=== PATIENT | male | born 1990 | race Hispanic/Latino ===

== ENCOUNTER 2021-01-18 04:37 | Inpatient (IN) | payer SELFPAY ==
[2021-01-18] MEDS ORDERED: NORepinephrine/NS 4 MG-250 ML 4 MG/250 ML BAG IV ONE (04:58)
[2021-01-18] MEDS: NORepinephrine/NS 4 MG-250 ML 4 MG/250 ML BAG IV SCH ×3 (05:06→09:43)
[2021-01-18] MEDS ORDERED: LIP THERAPY VASELINE TP PRN (05:20)
[2021-01-18] MEDS ORDERED: MINERAL OIL/PETROLATUM, WHITE OPHTH OINT 3.5 GM OU PRN (05:20)
[2021-01-18] MEDS ORDERED: fentaNYL 100 MCG/2 ML INJ IV PRN (05:20)
[2021-01-18] MEDS ORDERED: LACTATED RINGERS 1,000 ML IV ONE ×3 (05:23→06:07)
--- NOTE | 2021-01-18 05:25 | Emergency Department Report ---
<LEROY ALMONTE - Last Filed: 01/18/21 06:13> ED General Adult HPI - General Chief complaint: Overdose Stated complaint: OVERDOSE PUI?: No Time Seen by Provider: 01/18/21 05:19 Source: EMS (Verbal report received from emergency medical services. EMS documentation not available at time of chart dictation ), RN notes reviewed Mode of arrival: Stretcher Limitations: Altered Mental Status, Physical Limitation - History of Present Illness Initial comments: The patient was evaluated in the emergency department for symptoms described in the history of present illness. He/she was evaluated in the context of the global COVID-19 pandemic, which necessitated consideration that the patient might be at risk for infection with the virus that causes COVID-19. Institutional protocols and algorithms that pertain to the evaluation of patients at risk for COVID-19 are in a state of rapid change based on i nformation released by regulatory bodies including the CDC and federal and state organizations. These policies and algorithms were followed during the patient's care in the emergency department. Please note that these policies, procedures and recommendations changed on a rapid basis. This is a 30-year-old gentleman. He is not known to myself previously. He is brought to the hospital by emergency medical services as out of hospital cardiac arrest, suspected secondary to overdose. EMS reports that the patient was found down after suspected overdose, apparently, his last known well time was 3:00 in the morning, EMS reports that it is suspected that the patient overdosed on methamphetamine, as well as opioids. His family stated that his last known well time was 3 in the morning. His aunt stated that he appeared to be slumped over, without signs of trauma, but and not breathing well. She also stated that the patient had been "talking crazy", over the past few days. She states that she started CPR. EMS was contacted, and they reported that police also started CPR. EMS reported that patient's initial rhythm is pulseless electrical activity, and the patient was intubated in the field with a 7.0 endotracheal tube. Transport time approximately 20 minutes. EMS reports no pulses during that transport time. They report that the patient subsequently developed a shockable rhythm, was shocked, given amiodarone. Upon arrival to this emergency room, patient's pupils are fixed, dilated, do not react to light, he has a GCS of 3T, and he is receiving CPR. He is vomitus around the oropharynx. He is found to be in pulseless electrical activity. Endotracheal tube position was confirmed with video laryngoscopy. Standard ACLS interventions are continued. Subsequently, patient regained pulses, approximately 10 to 15 minutes into his ER resuscitation. His endotracheal tube was then changed to a 7.5 endotracheal tube, using video and direct laryngoscopy, secondary to hypoxia. Patient hypotensive with IV access only right lower extremity IO, therefore, emergently, and administratively consented by myself for sterile central line placement, using ultrasound guidance, in the right internal jugular distribution. Patient started on norepinephrine, and medicated appropriately. Currently, patient hypothermic, hypotensive, in a coma, with a GCS of 3T. His family is subsequently informed. -: This morning (3:00 in the morning) Radiation: other Quality: other Consistency: other Improves with: other Worsens with: other Associated Symptoms: other Treatments Prior to Arrival: other - Related Data Allergies Allergy/AdvReac Type Severity Reaction Status Date / Time Unable to Assess Allergy Unverified 01/18/21 05:47 ED Review of Systems Comment: Unobtainable due to pts medical conditions ED Physical Exam - General Limitations: Altered Mental Status, Physical Limitation General appearance: obtunded - Head Head exam: Present: atraumatic, normocephalic - Eye Eye exam: Present: other (Pupils dilated, do not react to) - ENT ENT exam: Present: normal exam, normal orophraynx, mucous membranes moist, other (Copious secretions noted in the oropharynx) - Neck Neck exam: Present: normal inspection. Absent: tenderness, meningismus - Respiratory Respiratory exam: Present: rhonchi. Absent: respiratory distress - Cardiovascular Cardiovascular Exam: Present: regular rate, normal rhythm. Absent: tachycardia, irregular rhythm, systolic murmur, diastolic murmur, rubs, gallop - GI/Abdominal GI/Abdominal exam: Present: soft. Absent: distended, tenderness, guarding, rebound, rigid, pulsatile mass - Rectal Rectal exam: Present: deferred, normal inspection - External exam: Present: normal external exam - Extremities Exam Extremities exam: Present: normal inspection. Absent: tenderness - Back Exam Back exam: Present: normal inspection. Absent: CVA tenderness (R), CVA tenderness (L), muscle spasm, paraspinal tenderness, vertebral tenderness - Neurological Exam Neurological exam: Present: altered, other (GCS of 3T) - Psychiatric Psychiatric exam: Present: other (Patient is nonverbal) - Skin Skin exam: Present: warm, dry, intact, normal color. Absent: rash ED Course - Reevaluation(s) Reevaluation #1: 01/18/21 06:06 Differential diagnosis, including but not limited to: Anoxic brain injury, overdose, pneumonitis, pulmonary embolism Assessment and plan: 30-year-old gentleman, presenting as out of hospital cardiac arrest, prolonged downtime, prolonged requirements for CPR, now with return of spontaneous circulation, with a GCS of 3T. This hospital does not have a postarrest hypothermia protocol. Patient required initiation of vasopressors. Patient had central line placed by myself. He is currently being mechanically ventilated. Coagulopathy, leukocytosis likely secondary to physiology of cardiac arrest. He will be covered empirically with fluids, antibiotics, cultures. CT scan of the brain, cervical spine, chest is pending. Given history of suspected overdose, patient is placed on 1013. Serum toxicology studies ordered and pending. Extensive discussion had with patient's family regarding overall poor neurologic prognosis. Care will be transferred to the oncoming ER physician, Dr Cruz, to follow-up on CT scan brain, cervical spine, chest, serum laboratory studies, and arrange admission to our intensive care unit. Please note that sterile central line was placed using sterile gloves, as the department did not have sterile probe readily available. Therefore, sterile gloves were used to place the Central line. maximum barrier precautions were used, however, I recommend the central line be taken out and replaced within 24 hours, using maximum sterile barrier precautions, and a sterile probe cover. - Central Line Placement Right IJ Consent Obtained: emergent situation Time Out Performed: No Patient Placed on Monitor/Pulse Ox: No MD Prep: mask, gown, gloves Central Line Prep: Chlorhexidine scrub Local Anesthesia Used: Lidocaine 1% Amount of Anesthesia Used (mls): 10 Ultrasound Used for Placement: Yes Central Line Lumen Inserted: triple Reason for Insertion: Emergency Venous Access Bloods Obtained for Lab: Yes Central Line Position: good blood return, all ports aspirated, flus, sutured in place with 2-0 Dressing Applied: Tegaderm Post Procedure X-Ray: tip of catheter in good p Patient Tolerated Procedure: well - Intubation Time Out Performed: No Laryngoscope: Lisette Size: 3 Assist Device Used: fiberoptic device ET Tube Size: 7.5 Tube Secured Depth (cm): 23 Tube Secured Location: teeth Tube Placement Confirmation: visualized tube passing t, equal breath sounds bilat, no breath sounds over epi, confirmation by capnometr Patient Tolerated Procedure: well Intubation Complications: difficult intubation, hypoxia ED Medical Decision Making - Lab Data Result diagrams: 01/18/21 05:31 01/18/21 05:31 Vital Signs 01/18/21 01/18/21 04:50 05:00 Temperature 92.6 F L Pulse Rate 53 L 32 L Respiratory 8 L Rate Blood Pressure 58/40 58/40 O2 Sat by Pulse 89 85 Oximetry Lab Results 01/18/21 01/18/21 01/18/21 Range/Units 05:31 05:31 05:31 WBC 19.2 H (4.5-11.0) K/mm3 RBC 4.57 (3.65-5.03) M/mm3 Hgb 13.8 (11.8-15.2) gm/dl Hct 43.3 (35.5-45.6) % MCV 95 H (84-94) fl MCH 30 (28-32) pg MCHC 32 (32-34) % RDW 14.7 (13.2-15.2) % Plt Count 244 (140-440) K/mm3 Lymph # (Auto) [employer] PT 23.8 H (12.2-14.9) Sec. INR 2.13 H (0.87-1.13) APTT 104.7 H* (24.2-36.6) Sec. Estimated GFR 24 ml/min BUN/Creatinine Ratio 8 % Albumin/Globulin Ratio 2.0 % Plasma/Serum Alcohol (0-0.07) % 01/18/21 Range/Units 05:31 WBC (4.5-11.0) K/mm3 RBC (3.65-5.03) M/mm3 Hgb (11.8-15.2) gm/dl Hct (35.5-45.6) % MCV (84-94) fl MCH (28-32) pg MCHC (32-34) % RDW (13.2-15.2) % Plt Count (140-440) K/mm3 Lymph # (Auto) PT (12.2-14.9) Sec. INR (0.87-1.13) APTT (24.2-36.6) Sec. Estimated GFR ml/min BUN/Creatinine Ratio % Albumin/Globulin Ratio % Plasma/Serum Alcohol 0.01 (0-0.07) % - EKG Data -: EKG Interpreted by Me EKG shows normal: sinus rhythm Rate: normal - EKG Data 01/18/21 06:08 sinus kerry, 55 bpm, first degre av block, QTC prolonged, 494 ms. Time of interpretation, 5:58 AM. This is an abnormal EKG. This is not a STEMI - Radiology Data Radiology results: pending, report reviewed, image reviewed CHEST 1 VIEW 01/18/2021 4:57 AM INDICATION / CLINICAL INFORMATION: ETT placement. COMPARISON: None available. FINDINGS: SUPPORT DEVICES: Endotracheal tube in satisfactory position. Right IJ central venous catheter tip over the superior vena cava. No pneumothorax. HEART / MEDIASTINUM: No significant abnormality. LUNGS / PLEURA: Mild asymmetric opacity on the right. Left lung clear. No pneumothorax or pleural fluid. ADDITIONAL FINDINGS: No significant additional findings. IMPRESSION: 1. Asymmetric opacity right chest. Aspiration/pneumonia is favored over asymmetric edema. 2. Lines and tubes in satisfactory position. Signer Name: Estevan Saleh MD Signed: 01/18/2021 5:07 AM Workstation Name: [id number] Critical Care Time: Yes Critical care time in (mins) excluding proc time.: 35 ED Disposition Clinical Impression: Cardiac arrest, Hypothermia, Aspiration pneumonia, Hyperammonemia, Upper GI bleed Disposition: - OP ADMIT IP TO THIS HOSP Is pt being admited?: Yes Does the pt Need Aspirin: No Condition: Critical <NOMI CRUZ - Last Filed: 01/18/21 08:42> ED Review of Systems ROS: Stated complaint: OVERDOSE Other details as noted in HPI ED Course Vital Signs 01/18/21 01/18/21 01/18/21 04:50 05:00 05:45 Temperature 92.6 F L 92.6 F L Pulse Rate 53 L 32 L Respiratory 8 L Rate Blood Pressure 58/40 58/40 O2 Sat by Pulse 89 85 Oximetry - Reevaluation(s) Reevaluation #2: 01/18/21 07:00 patient care transition to Dr. Nomi Cruz at [address] of [address] head, CTA chest. During initial evaluation, patient unresponsive, intubated, normotensive on Levophed drip via triple-lumen to right IJ. Currently receiving second bag of lactated Ringer's. Given abnormal labs, 1 L IV NS ordered. Reevaluation #3: 01/18/21 07:[address] head, abnormal CT chest, discussed with mother probable medical futility of aggressive measures given ischemia demonstrated on brain CT. Initially ordered lactulose for hyperammonemia, however this is discontinued secondary to apparent upper GI bleed visualized via OG tube. Hospitalist contacted for admission to critical care unit, has ongoing discussion with mother prior to any further patient intervention. Patient admitted to CCU. [facility] [address] [place] [address] C at Scan Report Signed Patient: DAYANA SPAIN MR#: [id number] : 1990 Acct:[id number] Age/Sex: 30 / M ADM Date: 01/18/21 Loc: ED Attending Dr: Ordering Physician: LEROY ALMONTE MD Date of Service: 01/18/21 Procedure(s): CT angio chest Accession Number(s): [id number] cc: LEROY ALMONTE MD CTA CHEST HISTORY: Chest Pain. COMPARISON: None TECHNIQUE: Routine chest CT angiogram performed utilizing intravenous contrast. MIP/3D reformats were post- processed. CONTRAST: 100 ml of Isovue-370 FINDINGS: Heart and Pericardium: No significant abnormality. Pulmonary Arteries: Diagnostic pulmonary artery opacification. No significant respiratory motion. No pulmonary emboli seen. Thoracic Aorta: Normal in caliber. No dissection flap Lymphatics: No lymphadenopathy by size criteria. Lungs: Groundglass opacity and patchy infiltrates greater dependently. No pleural fluid. Trachea and Bronchi: No significant abnormality. Osseous Structures: Irregularity involving the anterior cortex of the sternum. Additional Findings: None IMPRESSION: 1. Overall diagnostic examination. Negative for pulmonary embolism. 2. Negative for thoracic aortic dissection or thoracic aortic aneurysm. 3. Bilateral pneumonia is likely aspiration in origin. There is likely superimposed mild edema 4. Suspect nondisplaced fracture anterior sternum. CRITICAL RESULT: Time of Discovery: 6:17 AM Time of Communication: 6:22 AM Licensed Practitioner Receiving Report: ER physician Read Back Performed: Yes. Signer Name: Estevan Saleh MD Signed: 01/18/2021 7:27 AM Workstation Name: [id number] Transcribed By: ES Dictated By: Estevan Saleh MD Electronically Authenticated By: Estevan Saleh MD Signed Date/Time: 01/18/21726 DD/ 6 TD/TT: Cat Scan Report Signed Patient: DAYANA SPAIN MR#: [id number] : 1990 Acct:[id number] Age/Sex: 30 / M ADM Date: 01/18/21 Loc: ED Attending Dr: Ordering Physician: LEROY ALMONTE MD Date of Service: 01/18/21 Procedure(s): CT head/brain wo con Accession Number(s): [id number] cc: LEROY ALMONTE MD CT head without contrast INDICATION : Cardiac Arrest, Altered Mental Status, Overdose. TECHNIQUE: Axial imaging performed from the skull apex through the skull base without the use of contrast. All CT scans at this location are performed using CT dose reduction for ALARA by means of automated e xposure control. COMPARISON: None FINDINGS: Parenchyma: Mild loss of the lee- white differentiation. No hemorrhage. Ventricles: Ventricles are normal in size and appear symmetric. Soft tissues: Soft tissues including the orbits appear normal. Bones: No acute osseous abnormality. Sinuses: Bilateral maxillary sinus air-fluid levels. Mild fluid left ethmoid air cells. IMPRESSION: 1. Mild loss of the lee-white differentiation. It is uncertain if this is normal for this patient or if the findings represent early ischemia. 2. Fluid at the maxillary sinuses and left ethmoid air cells. CRITICAL RESULT: Time of Discovery: 6:20 AM Time of Communication: 6:22 AM Licensed Practitioner Receiving Report: ER physician Read Back Performed: Yes. ED Medical Decision Making - Lab Data Result diagrams: 01/18/21 05:31 01/18/21 05:31 Critical care attestation.: If time is entered above; I have spent that time in minutes in the direct care of this critically ill patient, excluding procedure time.
[2021-01-18 05:50] LABS: Hematocrit 43.3 % (35.5-45.6); Hemoglobin 13.8 gm/dl (11.8-15.2); Mean Corpuscular HGB Conc 32 % (32-34); Mean Corpuscular Volume 95 fl (84-94); Platelet Count 244 K/mm3 (140-440); Red Blood Count 4.57 M/mm3 (3.65-5.03); Red Cell Distribution Width 14.7 % (13.2-15.2)
[2021-01-18 06:00] LABS: INR 2.13 (0.87-1.13)
[2021-01-18] MEDS ORDERED: fentaNYL DRIP Premix 2,000 MCG/100 ML BAG IV SCH (06:00)
[2021-01-18 06:04] LABS: Partial Thromboplastin Time 104.7 Sec. (24.2-36.6)
[2021-01-18 06:05] LABS: Albumin 3.8 g/dL (3.9-5); BUN/Creatinine Ratio 8; Blood Urea Nitrogen 25 mg/dL (9-20); Hemolysis Index 74
[2021-01-18] MEDS ORDERED: CEFEPIME/NS 2 GM/100 ML 2 GM/100 ML BAG IV ONE (06:07)
--- NOTE | 2021-01-18 06:11 | XRay Report ---
CHEST 1 VIEW 01/18/2021 4:57 AM INDICATION / CLINICAL INFORMATION: ETT placement. COMPARISON: None available. FINDINGS: SUPPORT DEVICES: Endotracheal tube in satisfactory position. Right IJ central venous catheter tip ove r the superior vena cava. No pneumothorax. HEART / MEDIASTINUM: No significant abnormality. LUNGS / PLEURA: Mild asymmetric opacity on the right. Left lung clear. No pneumothorax or pleural flu id. ADDITIONAL FINDINGS: No significant additional findings. IMPRESSION: 1. Asymmetric opacity right chest. Aspiration/pneumonia is favored over asymmetric edema. 2. Lines and tubes in satisfactory position. Signer Name: Estevan Saleh MD Signed: 01/18/2021 6:07 AM Workstation Name: [id number]
[2021-01-18 06:22] LABS: Alanine Aminotransferase 5505 units/L (7-56); Calcium > 13.0 mg/dL (8.4-10.2)
[2021-01-18 06:37] LABS: Amorphous Crystals,Urine Few; Bilirubin,Urine NEG (Negative); Blood,Urine NEG (Negative); Color,Urine Yellow (Yellow); Mucus,Urine FEW /HPF; Urobilinogen,Urine < 2.0 mg/dL (<2.0)
[2021-01-18 06:40] LABS: Amphetamine Screen,Urine PRESUMPTIVE POSITIVE; Benzodiazepines Screen,Urine PRESUMPTIVE POSITIVE; Cannabinoid Screen,Urine PRESUMPTIVE POSITIVE; Cocaine Screen,Urine PRESUMPTIVE NEGATIVE; Methadone Screen,Urine PRESUMPTIVE NEGATIVE; Opiate Screen,Urine PRESUMPTIVE NEGATIVE
[2021-01-18] MEDS ORDERED: SODIUM CHLORIDE 0.9% 1000 ML 1,000 ML ONE (06:40)
[2021-01-18] MEDS ORDERED: SODIUM CHLORIDE 0.9% 1000 ML 1,000 ML IV ONE (06:40)
[2021-01-18 06:58] LABS: Total Cells Counted 100
[2021-01-18 06:59] LABS: ABG Base Excess -14.8 mmol/L (-2.0-3.0); ABG HCO3 22.6 mmol/L (20.0-26.0); ABG Methemoglobin 0.9 % (0.0-1.5); ABG Oxygen Saturation 64.1 % (95.0-99.0); ABG PCO2 154.2 mm Hg; ABG PO2 53.2 mm Hg (80.0-90.0)
[2021-01-18 06:59] LABS: Platelet Estimate Consistent w Auto; RBC Morphology Normal
[2021-01-18 07:02] LABS: ABG PH < 6.9 pH Units (7.350-7.450)
[2021-01-18 07:06] LABS: Chol/HDL Ratio 4.83 %; HDL Cholesterol 30 mg/dL (40-59); LDL Cholesterol,Direct 115 mg/dL (50-130)
[2021-01-18] MEDS ORDERED: LACTULOSE 20 GM/30 ML ORAL LIQD PO ONE (07:19)
--- NOTE | 2021-01-18 07:30 | Cat Scan Report ---
CT CERVICAL SPINE WITHOUT CONTRAST HISTORY: Cardiac arrest. Neck pain. COMPARISON: None TECHNIQUE: CT images of the cervical spine were obtained without contrast. Sagittal and coronal refo rmats were post-processed. CONTRAST: None. FINDINGS: Alignment: Normal. Vertebrae:No significant abnormality. Disc Spaces: No significant abnormality allowing for lack of intrathecal contrast. Facet Joints:No significant abnormality. Craniocervical Junction:No significant abnormality. Prevertebral Soft Tissues:No significant abnormality. Lung Apices: No significant abnormality. Additional Findings: None IMPRESSION: No significant abnormality. Signer Name: Estevan Saleh MD Signed: 01/18/2021 7:25 AM Workstation Name: [id number]
--- NOTE | 2021-01-18 07:31 | Cat Scan Report ---
CT head without contrast INDICATION : Cardiac Arrest, Altered Mental Status, Overdose. TECHNIQUE: Axial imaging performed from the skull apex through the skull base without the use of con trast. All CT scans at this location are performed using CT dose reduction for ALARA by means of aut omated exposure control. COMPARISON: None FINDINGS: Parenchyma: Mild loss of the lee-white differentiation. No hemorrhage. Ventricles: Ventricles are normal in size and appear symmetric. Soft tissues: Soft tissues including the orbits appear normal. Bones: No acute osseous abnormality. Sinuses: Bilateral maxillary sinus air-fluid levels. Mild fluid left ethmoid air cells. IMPRESSION: 1. Mild loss of the lee-white differentiation. It is uncertain if this is normal for this patient or if the findings represent early ischemia. 2. Fluid at the maxillary sinuses and left ethmoid air cells. CRITICAL RESULT: Time of Discovery: 6:20 AM Time of Communication: 6:22 AM Licensed Practitioner Receiving Report: ER physician Read Back Performed: Yes. Signer Name: Estevan Saleh MD Signed: 01/18/2021 7:26 AM Workstation Name: [id number]
--- NOTE | 2021-01-18 07:31 | Cat Scan Report ---
CTA CHEST HISTORY: Chest Pain. COMPARISON: None TECHNIQUE: Routine chest CT angiogram performed utilizing intravenous contrast. MIP/3D reformats wer e post-processed. CONTRAST: 100 ml of Isovue-370 FINDINGS: Heart and Pericardium: No significant abnormality. Pulmonary Arteries: Diagnostic pulmonary artery opacification. No significant respiratory motion. No pulmonary emboli seen. Thoracic Aorta: Normal in caliber. No dissection flap Lymphatics: No lymphadenopathy by size criteria. Lungs: Groundglass opacity and patchy infiltrates greater dependently. No pleural fluid. Trachea and Bronchi: No significant abnormality. Osseous Structures: Irregularity involving the anterior cortex of the sternum. Additional Findings: None IMPRESSION: 1. Overall diagnostic examination. Negative for pulmonary embolism. 2. Negative for thoracic aortic dissection or thoracic aortic aneurysm. 3. Bilateral pneumonia is likely aspiration in origin. There is likely superimposed mild edema 4. Suspect nondisplaced fracture anterior sternum. CRITICAL RESULT: Time of Discovery: 6:17 AM Time of Communication: 6:22 AM Licensed Practitioner Receiving Report: ER physician Read Back Performed: Yes. Signer Name: Estevan Saleh MD Signed: 01/18/2021 7:27 AM Workstation Name: [id number]
[2021-01-18] MEDS ORDERED: ACETAMINOPHEN 650 MG RECT SUPP PR PRN (07:47)
[2021-01-18] MEDS ORDERED: ONDANSETRON 4 MG/2 ML INJ IV PRN (07:47)
[2021-01-18] MEDS ORDERED: DEXTROSE 50% IN WATER (25GM) 50 ML SYRINGE IV PRN (07:47)
[2021-01-18] MEDS ORDERED: ALBUTEROL 2.5 MG/3 ML NEBU IH PRN (07:47)
[2021-01-18] MEDS ORDERED: SODIUM CHLORIDE 0.9% 1000 ML 1,000 ML IV SCH (08:00)
--- NOTE | 2021-01-18 08:08 | Consultation ---
History of Present Illness - Reason for Consult Consult date: 01/18/21 acute renal failure - History of Present Illness patient was admitted after he had cardiac arrest secondary to drug overdose, currently intubated and sedated, on admission was noted to have acute renal failure, lactic acidosis and hyperkalemia, renal consult was for INDIRA Medications and Allergies Allergies Allergy/AdvReac Type Severity Reaction Status Date / Time Unable to Assess Allergy Unverified 01/18/21 05:47 Active Meds: Active Medications Acetaminophen (Acetaminophen 650 Mg Rect Supp) 650 mg DC Q6H PRN PRN Reason: Pain MILD(1-3)/Fever >100.5/REYES Albuterol (Albuterol 2.5 Mg/3 Ml Nebu) 2.5 mg IH Q3HRT PRN PRN Reason: Shortness Of Breath Albuterol/Ipratropium (Ipratropium/Albuterol Sulfate 3 Ml Ampul.Neb) 1 ampul IH Q6HRT MYRON Dextrose (Dextrose 50% In Water (25gm) 50 Ml Syringe) 50 ml IV Q30MIN PRN; Protocol PRN Reason: Hypoglycemia Famotidine (Famotidine 20 Mg/2 Ml Inj) 20 mg IV BID MYRON Fentanyl (Fentanyl 100 Mcg/2 Ml Inj) 50 mcg IV Q10MIN PRN PRN Reason: ANALGESIA Last Admin: 01/18/21 05:31 Dose: 50 mcg Documented by: Hydrophilic Ointment (Lip Therapy Vaseline) 1 applic TP Q2HR PRN PRN Reason: Dry Lips Last Admin: 01/18/21 05:34 Dose: 1 applic Documented by: Fentanyl Citrate (Fentanyl Drip Premix) 2,000 mcg in 100 mls @ 3.629 mls/hr IV TITR MYRON; Protocol Norepinephrine (Levophed Drip 4 Mg/Ns 250 Ml) 4 mg in 250 mls @ 7.5 mls/hr IV TITR MYRON; Protocol Last Titration: 01/18/21 07:10 Dose: 18 mcg/min, 67.5 mls/hr Documented by: Sodium Chloride (Nacl 0.9% 1000 Ml) 1,000 mls @ 125 mls/hr IV DIRECT MYRON Multi-Ingred Cream/Lotion/Oil/Oint (Mineral Oil/Petrolatum, White Ophth Oint 3.5 Gm) 1 applic OU Q4HR PRN PRN Reason: Dry Eye(s) Last Admin: 01/18/21 05:33 Dose: 1 applic Documented by: Ondansetron HCl (Ondansetron 4 Mg/2 Ml Inj) 4 mg IV Q8H PRN PRN Reason: Nausea And Vomiting Sodium Chloride (Sodium Chloride 0.9% 10 Ml Flush Syringe) 10 ml IV BID MYRON Sodium Chloride (Sodium Chloride 0.9% 10 Ml Flush Syringe) 10 ml IV PRN PRN PRN Reason: LINE FLUSH Review of Systems ROS unobtainable: due to endotracheal tube, due to mental status Exam - Vital Signs Vital signs: Vital Signs Temp Pulse Resp BP Pulse Ox 92.6 F L 53 L 8 L 58/40 89 01/18/21 04:50 01/18/21 04:50 01/18/21 04:50 01/18/21 04:50 01/18/21 04:50 - General Appearance General appearance: intubated EENT: ATNC, PERRL Neck: Present: neck supple Respiratory: Decreased Breath Sounds Heart: tachycardia Gastrointestinal: Present: hypoactive bowel sounds Integumentary: no rash Neurologic: other (intubated) Psychiatric: other (intubated) Results - Lab Results 01/18/21 05:31 01/18/21 05:31 Most recent lab results ABG pH < 6.9 pH Units (7.350-7.450) L* 01/18/21 Unknown ABG pCO2 154.2 mm Hg 01/18/21 Unknown ABG pO2 53.2 mm Hg (80.0-90.0) L 01/18/21 Unknown ABG HCO3 22.6 mmol/L (20.0-26.0) 01/18/21 Unknown ABG O2 Saturation 64.1 % (95.0-99.0) L 01/18/21 Unknown Calcium > 13.0 mg/dL (8.4-10.2) H* 01/18/21 05:31 Assessment and Plan cardiac arrest drug overdose acute renal failure secondary to ischemic ATN acute hypoxic resp failure on mechanical ventilation Severe lactic acidosis Hypkerkalemia shock liver family decided comfort care [id number] sign off
[2021-01-18] MEDS ORDERED: IPRATROPIUM/ALBUTEROL SULFATE 3 ML AMPUL.NEB IH SCH (08:15)
--- NOTE | 2021-01-18 08:39 | History and Physical Report ---
History of Present Illness Date of examination: 01/18/21 History of present illness: This is a 30-year-old male hepatitis C and prior suicide attempts who presented to the ED on 01/18 s/p cardiac arrest at home with last known well at 0300 found in PEA and intubated in the field by EMS with a reportedly obtained a shockable rhythm on route which was shocked and was given amiodarone. Upon arrival to the ED department patient's pupils are fixed and dilated and react to light with a GCS of 3T and receiving CPR with vomitus around oropharynx and PEA and regained ROSC approximately 10 to 15 minutes post arrival to the ED and his low ETT was changed to 7.50 ETT, patient was hypotensive at 58/40 and a central line was p laced and he was hypothermic at 92.6 F. Initial chest x-ray showed asymmetric opacity right chest (aspiration/pneumonia favored over asymmetric edema), CT head shows mild loss of to white differentiation which may represent early ischemia with fluid in the maxillary sinus and left ethmoid air cells and CTA chest was negative for pulmonary embolism, negative for thoracic aortic dissection or thoracic aortic aneurysm, bilateral pneumonia superimposed on mild edema and suspected nondisplaced fracture of the anterior sternum. Lab work revealed leukocytosis, hypoxemia, metabolic acidosis, hyperchloremia, hypernatremia, acute kidney injury, lactic acidosis, hyperkalemia, transaminitis, hyperammonemia, elevated cardiac enzymes and elevated TSH. His UDS was positive for amphetamines, benzodiazepines and THC. Cardiology, neurology, psychiatric, nephrology and CCM were consulted. Dr. Cruz and Dr. Silver had an extensive conversation with mother at bedside about goals of care. Sepsis Hypothermia Hypotension Acute hypoxic respiratory failure Acute kidney injury Leukocytosis ? Aspiration pneumonia Hypoxemia Metabolic acidosis Hyperchloremia Hypernatremia Lactic acidosis Hyperkalemia Transaminitis Hyperammonemia Elevated cardiac enzymes Drug overdose with amphetamines, benzodiazepines Elevated TSH Medications and Allergies Allergies Allergy/AdvReac Type Severity Reaction Status Date / Time Unable to Assess Allergy Unverified 01/18/21 05:47 Active Meds: Active Medications Acetaminophen (Acetaminophen 650 Mg Rect Supp) 650 mg [place] Q6H PRN PRN Reason: Pain MILD(1-3)/Fever >100.5/REYES Albuterol (Albuterol 2.5 Mg/3 Ml Nebu) 2.5 mg IH Q3HRT PRN PRN Reason: Shortness Of Breath Albuterol/Ipratropium (Ipratropium/Albuterol Sulfate 3 Ml Ampul.Neb) 1 ampul IH Q6HRT MYRON Dextrose (Dextrose 50% In Water (25gm) 50 Ml Syringe) 50 ml IV Q30MIN PRN; Protocol PRN Reason: Hypoglycemia Famotidine (Famotidine 20 Mg/2 Ml Inj) 20 mg IV DAILY MYRON Hydrophilic Ointment (Lip Therapy Vaseline) 1 applic TP Q2HR PRN PRN Reason: Dry Lips Last Admin: 01/18/21 05:34 Dose: 1 applic Documented by: Norepinephrine (Levophed Drip 4 Mg/Ns 250 Ml) 4 mg in 250 mls @ 7.5 mls/hr IV TITR MYRON; Protocol Last Titration: 01/18/21 08:23 Dose: 20 mcg/min, 75 mls/hr Documented by: Sodium Chloride (Nacl 0.9% 1000 Ml) 1,000 mls @ 125 mls/hr IV DIRECT MYRON Azithromycin (Zithromax/Ns) 500 mg in 250 mls @ 250 mls/hr IV Q24H MYRON Ceftriaxone Sodium (Rocephin/Ns 2 Gm/100 Ml) 2 gm in 100 mls @ 200 mls/hr IV Q24H MYRON; Protocol Multi-Ingred Cream/Lotion/Oil/Oint (Mineral Oil/Petrolatum, White Ophth Oint 3.5 Gm) 1 applic OU Q4HR PRN PRN Reason: Dry Eye(s) Last Admin: 01/18/21 05:33 Dose: 1 applic Documented by: Ondansetron HCl (Ondansetron 4 Mg/2 Ml Inj) 4 mg IV Q8H PRN PRN Reason: Nausea And Vomiting Sodium Chloride (Sodium Chloride 0.9% 10 Ml Flush Syringe) 10 ml IV BID MYRON Sodium Chloride (Sodium Chloride 0.9% 10 Ml Flush Syringe) 10 ml IV PRN PRN PRN Reason: LINE FLUSH Exam - Constitutional Vitals: Temp Pulse Resp BP Pulse Ox 92.6 F L 32 L 8 L 58/40 85 01/18/21 05:45 01/18/21 05:00 01/18/21 04:50 01/18/21 05:00 01/18/21 05:00 General appearance: Present: other (unresponive) HEART Score - HEART Score Troponin: Troponin T 0.183 ng/mL (0.00-0.029) H* 01/18/21 05:31 Results - Labs CBC & Chem 7: 01/18/21 08:14 01/18/21 08:13 Labs: Abnormal lab results 01/18/21 01/18/21 01/18/21 Range/Units 05:31 05:31 05:31 WBC 19.2 H (4.5-11.0) K/mm3 MCV 95 H (84-94) fl Monocytes % (Manual) 9.0 H (0.0-7.3) % Seg Neutrophils # Man 9.6 H (1.8-7.7) K/mm3 Lymphocytes # (Manual) 6.0 H (1.2-5.4) K/mm3 Monocytes # (Manual) 1.7 H (0.0-0.8) K/mm3 PT 23.8 H (12.2-14.9) Sec. INR 2.13 H (0.87-1.13) APTT 104.7 H* (24.2-36.6) Sec. ABG pH (7.350-7.450) pH Units ABG pO2 (80.0-90.0) mm Hg ABG O2 Saturation (95.0-99.0) % ABG Base Excess (-2.0-3.0) mmol/L ABG Hemoglobin (14.0-18.0) gm/dl Oxyhemoglobin (95.0-99.0) % Sodium 149 H (137-145) mmol/L Potassium 6.6 H* (3.6-5.0) mmol/L BUN 25 H (9-20) mg/dL Creatinine 3.1 H (0.8-1.3) mg/dL Lactic Acid (0.7-2.0) mmol/L Calcium > 13.0 H* (8.4-10.2) mg/dL AST 3671 H (5-40) units/L ALT 5505 H (7-56) units/L Alkaline Phosphatase 142 H (35-129) units/L Ammonia (25-60) umol/L Total Creatine Kinase 439 H (55-170) units/L Troponin T 0.183 H* (0.00-0.029) ng/mL Total Protein 5.7 L (6.3-8.2) g/dL Albumin 3.8 L (3.9-5) g/dL HDL Cholesterol 30 L (40-59) mg/dL TSH (0.270-4.200) mlU/mL Salicylates (2.8-20.0) mg/dL Acetaminophen (10.0-30.0) ug/mL 01/18/21 01/18/21 01/18/21 Range/Units 05:31 05:31 05:31 WBC (4.5-11.0) K/mm3 MCV (84-94) fl Monocytes % (Manual) (0.0-7.3) % Seg Neutrophils # Man (1.8-7.7) K/mm3 Lymphocytes # (Manual) (1.2-5.4) K/mm3 Monocytes # (Manual) (0.0-0.8) K/mm3 PT (12.2-14.9) Sec. INR (0.87-1.13) APTT (24.2-36.6) Sec. ABG pH (7.350-7.450) pH Units ABG pO2 (80.0-90.0) mm Hg ABG O2 Saturation (95.0-99.0) % ABG Base Excess (-2.0-3.0) mmol/L ABG Hemoglobin (14.0-18.0) gm/dl Oxyhemoglobin (95.0-99.0) % Sodium (137-145) mmol/L Potassium (3.6-5.0) mmol/L BUN (9-20) mg/dL Creatinine (0.8-1.3) mg/dL Lactic Acid 19.90 H* (0.7-2.0) mmol/L Calcium (8.4-10.2) mg/dL AST (5-40) units/L ALT (7-56) units/L Alkaline Phosphatase (35-129) units/L Ammonia 456.0 H (25-60) umol/L Total Creatine Kinase (55-170) units/L Troponin T (0.00-0.029) ng/mL Total Protein (6.3-8.2) g/dL Albumin (3.9-5) g/dL HDL Cholesterol (40-59) mg/dL TSH 11.330 H (0.270-4.200) mlU/mL Salicylates (2.8-20.0) mg/dL Acetaminophen (10.0-30.0) ug/mL 01/18/21 01/18/21 01/18/21 Range/Units 05:31 05:31 06:50 WBC (4.5-11.0) K/mm3 MCV (84-94) fl Monocytes % (Manual) (0.0-7.3) % Seg Neutrophils # Man (1.8-7.7) K/mm3 Lymphocytes # (Manual) (1.2-5.4) K/mm3 Monocytes # (Manual) (0.0-0.8) K/mm3 PT (12.2-14.9) Sec. INR (0.87-1.13) APTT (24.2-36.6) Sec. ABG pH (7.350-7.450) pH Units ABG pO2 (80.0-90.0) mm Hg ABG O2 Saturation (95.0-99.0) % ABG Base Excess (-2.0-3.0) mmol/L ABG Hemoglobin (14.0-18.0) gm/dl Oxyhemoglobin (95.0-99.0) % Sodium (137-145) mmol/L Potassium (3.6-5.0) mmol/L BUN (9-20) mg/dL Creatinine (0.8-1.3) mg/dL Lactic Acid 14.30 H* (0.7-2.0) mmol/L Calcium (8.4-10.2) mg/dL AST (5-40) units/L ALT (7-56) units/L Alkaline Phosphatase (35-129) units/L Ammonia (25-60) umol/L Total Creatine Kinase (55-170) units/L Troponin T (0.00-0.029) ng/mL Total Protein (6.3-8.2) g/dL Albumin (3.9-5) g/dL HDL Cholesterol (40-59) mg/dL TSH (0.270-4.200) mlU/mL Salicylates 0.7 L (2.8-20.0) mg/dL Acetaminophen 5.0 L (10.0-30.0) ug/mL 01/18/21 Range/Units Unknown WBC (4.5-11.0) K/mm3 MCV (84-94) fl Monocytes % (Manual) (0.0-7.3) % Seg Neutrophils # Man (1.8-7.7) K/mm3 Lymphocytes # (Manual) (1.2-5.4) K/mm3 Monocytes # (Manual) (0.0-0.8) K/mm3 PT (12.2-14.9) Sec. INR (0.87-1.13) APTT (24.2-36.6) Sec. ABG pH < 6.9 L* (7.350-7.450) pH Units ABG pO2 53.2 L (80.0-90.0) mm Hg ABG O2 Saturation 64.1 L (95.0-99.0) % ABG Base Excess -14.8 L (-2.0-3.0) mmol/L ABG Hemoglobin 12.4 L (14.0-18.0) gm/dl Oxyhemoglobin 62.6 L (95.0-99.0) % Sodium (137-145) mmol/L Potassium (3.6-5.0) mmol/L BUN (9-20) mg/dL Creatinine (0.8-1.3) mg/dL Lactic Acid (0.7-2.0) mmol/L Calcium (8.4-10.2) mg/dL AST (5-40) units/L ALT (7-56) units/L Alkaline Phosphatase (35-129) units/L Ammonia (25-60) umol/L Total Creatine Kinase (55-170) units/L Troponin T (0.00-0.029) ng/mL Total Protein (6.3-8.2) g/dL Albumin (3.9-5) g/dL HDL Cholesterol (40-59) mg/dL TSH (0.270-4.200) mlU/mL Salicylates (2.8-20.0) mg/dL Acetaminophen (10.0-30.0) ug/mL Assessment and Plan -Presented with leukocytosis, lactic acidosis, acute kidney injury, hypotension, hypothermia, acute hypoxic respiratory failure -Initiate rewarming guidelines -VAP bundle, pulmonary hygiene, serial ABGs and CXR -S/p IV fluid resuscitation with 4 L IVF, vasopressin, map goal greater than 65 -Nephrology consulted, appreciate recommendations -MIVF -Strict intake and output -Avoid nephrotoxic medications -S/p cefepime in the ED, azithromycin and ceftriaxone -Trend CBC -Trend BMP -CCM consulted, appreciate recommendations -Psychiatric consultation, appreciate recommendations -Cardiology consulted, appreciate recommendations -Trend H/H -Transfuse for hemoglobin less than 7 DVT/GI prophylaxis: SCDs to bilateral lower extremities while in bed, avoid chemical anticoagulation due to NG tube to LIS with bloody drainage, PPI Dispo: ICU
--- NOTE | 2021-01-18 08:40 | Consultation ---
History of Present Illness - Reason for Consult Consult date: 01/18/21 Reason for consult: MHE Requesting physician: JUNG AHN - History of Present Psychiatric Illness PSYCH HPI Patient is a 30-year-old who presents to the ED with drug overdose substantially going into cardiac arrest 9 postresuscitation state, family seen at bedside reported withdrawing care due to poor health outcomes per primary provider for p atient. Patient is not known to this facility before DUe to patients current medical status, psych is signing off, no further intervention can be provided at this time. Treatment Plan DRUG OVERDOSE MEDICATIONS: Risks, benefits and alternatives of medications discussed with the patient, questions answered and consent obtained from patient. PSYCHOTHERAPY: Supportive psychotherapy provided MEDICAL: Per primary team DELIRIUM PRECAUTIONS: Please re-orient patient frequently, keep lights on during the day, and minimize benzodiazepines and opiates as these medications could worsen patient's confusion. SOFTWARE SECURITY ARCHITECT: DISPOSITION: Do Not Recommend acute inpatient psychiatric hospitalization at this time. Case discussed with Dr. Rucker who agrees with current disposition FOLLOW-UP: Will sign off Thank you for the consult. Please contact with any questions and/or concerns. Medications and Allergies Allergies Allergy/AdvReac Type Severity Reaction Status Date / Time Unable to Assess Allergy Unverified 01/18/21 05:47 Active Meds: Active Medications Acetaminophen (Acetaminophen 650 Mg Rect Supp) 650 mg RI Q6H PRN PRN Reason: Pain MILD(1-3)/Fever >100.5/REYES Albuterol (Albuterol 2.5 Mg/3 Ml Nebu) 2.5 mg IH Q3HRT PRN PRN Reason: Shortness Of Breath Albuterol/Ipratropium (Ipratropium/Albuterol Sulfate 3 Ml Ampul.Neb) 1 ampul IH Q6HRT MYRON Dextrose (Dextrose 50% In Water (25gm) 50 Ml Syringe) 50 ml IV Q30MIN PRN; Protocol PRN Reason: Hypoglycemia Famotidine (Famotidine 20 Mg/2 Ml Inj) 20 mg IV DAILY MYRON Hydrophilic Ointment (Lip Therapy Vaseline) 1 applic TP Q2HR PRN PRN Reason: Dry Lips Last Admin: 01/18/21 05:34 Dose: 1 applic Documented by: Norepinephrine (Levophed Drip 4 Mg/Ns 250 Ml) 4 mg in 250 mls @ 7.5 mls/hr IV TITR MYRON; Protocol Last Titration: 01/18/21 08:23 Dose: 20 mcg/min, 75 mls/hr Documented by: Sodium Chloride (Nacl 0.9% 1000 Ml) 1,000 mls @ 125 mls/hr IV DIRECT MYRON Azithromycin (Zithromax/Ns) 500 mg in 250 mls @ 250 mls/hr IV Q24H MYRON Ceftriaxone Sodium (Rocephin/Ns 2 Gm/100 Ml) 2 gm in 100 mls @ 200 mls/hr IV Q24H MYRON; Protocol Multi-Ingred Cream/Lotion/Oil/Oint (Mineral Oil/Petrolatum, White Ophth Oint 3.5 Gm) 1 applic OU Q4HR PRN PRN Reason: Dry Eye(s) Last Admin: 01/18/21 05:33 Dose: 1 applic Documented by: Ondansetron HCl (Ondansetron 4 Mg/2 Ml Inj) 4 mg IV Q8H PRN PRN Reason: Nausea And Vomiting Sodium Chloride (Sodium Chloride 0.9% 10 Ml Flush Syringe) 10 ml IV BID MYRON Sodium Chloride (Sodium Chloride 0.9% 10 Ml Flush Syringe) 10 ml IV PRN PRN PRN Reason: LINE FLUSH Mental Status Exam - Vital signs Last Vital Signs Temp 89.9 F L 01/18/21 07:37 Pulse 32 L 01/18/21 05:00 Resp 8 L 01/18/21 04:50 BP 58/40 01/18/21 05:00 Pulse Ox 85 01/18/21 05:00 Results Result Diagrams: 01/18/21 08:14 01/18/21 08:13 Abnormal lab results 01/18/21 01/18/21 01/18/21 Range/Units 05:31 05:31 05:31 WBC 19.2 H (4.5-11.0) K/mm3 MCV 95 H (84-94) fl Monocytes % (Manual) 9.0 H (0.0-7.3) % Seg Neutrophils # Man 9.6 H (1.8-7.7) K/mm3 Lymphocytes # (Manual) 6.0 H (1.2-5.4) K/mm3 Monocytes # (Manual) 1.7 H (0.0-0.8) K/mm3 PT 23.8 H (12.2-14.9) Sec. INR 2.13 H (0.87-1.13) APTT 104.7 H* (24.2-36.6) Sec. ABG pH (7.350-7.450) pH Units ABG pO2 (80.0-90.0) mm Hg ABG O2 Saturation (95.0-99.0) % ABG Base Excess (-2.0-3.0) mmol/L ABG Hemoglobin (14.0-18.0) gm/dl Oxyhemoglobin (95.0-99.0) % Sodium 149 H (137-145) mmol/L Potassium 6.6 H* (3.6-5.0) mmol/L BUN 25 H (9-20) mg/dL Creatinine 3.1 H (0.8-1.3) mg/dL Lactic Acid (0.7-2.0) mmol/L Calcium > 13.0 H* (8.4-10.2) mg/dL AST 3671 H (5-40) units/L ALT 5505 H (7-56) units/L Alkaline Phosphatase 142 H (35-129) units/L Ammonia (25-60) umol/L Total Creatine Kinase 439 H (55-170) units/L Troponin T 0.183 H* (0.00-0.029) ng/mL Total Protein 5.7 L (6.3-8.2) g/dL Albumin 3.8 L (3.9-5) g/dL HDL Cholesterol 30 L (40-59) mg/dL TSH (0.270-4.200) mlU/mL Salicylates (2.8-20.0) mg/dL Acetaminophen (10.0-30.0) ug/mL 01/18/21 01/18/21 01/18/21 Range/Units 05:31 05:31 05:31 WBC (4.5-11.0) K/mm3 MCV (84-94) fl Monocytes % (Manual) (0.0-7.3) % Seg Neutrophils # Man (1.8-7.7) K/mm3 Lymphocytes # (Manual) (1.2-5.4) K/mm3 Monocytes # (Manual) (0.0-0.8) K/mm3 PT (12.2-14.9) Sec. INR (0.87-1.13) APTT (24.2-36.6) Sec. ABG pH (7.350-7.450) pH Units ABG pO2 (80.0-90.0) mm Hg ABG O2 Saturation (95.0-99.0) % ABG Base Excess (-2.0-3.0) mmol/L ABG Hemoglobin (14.0-18.0) gm/dl Oxyhemoglobin (95.0-99.0) % Sodium (137-145) mmol/L Potassium (3.6-5.0) mmol/L BUN (9-20) mg/dL Creatinine (0.8-1.3) mg/dL Lactic Acid 19.90 H* (0.7-2.0) mmol/L Calcium (8.4-10.2) mg/dL AST (5-40) units/L ALT (7-56) units/L Alkaline Phosphatase (35-129) units/L Ammonia 456.0 H (25-60) umol/L Total Creatine Kinase (55-170) units/L Troponin T (0.00-0.029) ng/mL Total Protein (6.3-8.2) g/dL Albumin (3.9-5) g/dL HDL Cholesterol (40-59) mg/dL TSH 11.330 H (0.270-4.200) mlU/mL Salicylates (2.8-20.0) mg/dL Acetaminophen (10.0-30.0) ug/mL 01/18/21 01/18/21 01/18/21 Range/Units 05:31 05:31 06:50 WBC (4.5-11.0) K/mm3 MCV (84-94) fl Monocytes % (Manual) (0.0-7.3) % Seg Neutrophils # Man (1.8-7.7) K/mm3 Lymphocytes # (Manual) (1.2-5.4) K/mm3 Monocytes # (Manual) (0.0-0.8) K/mm3 PT (12.2-14.9) Sec. INR (0.87-1.13) APTT (24.2-36.6) Sec. ABG pH (7.350-7.450) pH Units ABG pO2 (80.0-90.0) mm Hg ABG O2 Saturation (95.0-99.0) % ABG Base Excess (-2.0-3.0) mmol/L ABG Hemoglobin (14.0-18.0) gm/dl Oxyhemoglobin (95.0-99.0) % Sodium (137-145) mmol/L Potassium (3.6-5.0) mmol/L BUN (9-20) mg/dL Creatinine (0.8-1.3) mg/dL Lactic Acid 14.30 H* (0.7-2.0) mmol/L Calcium (8.4-10.2) mg/dL AST (5-40) units/L ALT (7-56) units/L Alkaline Phosphatase (35-129) units/L Ammonia (25-60) umol/L Total Creatine Kinase (55-170) units/L Troponin T (0.00-0.029) ng/mL Total Protein (6.3-8.2) g/dL Albumin (3.9-5) g/dL HDL Cholesterol (40-59) mg/dL TSH (0.270-4.200) mlU/mL Salicylates 0.7 L (2.8-20.0) mg/dL Acetaminophen 5.0 L (10.0-30.0) ug/mL 01/18/21 Range/Units Unknown WBC (4.5-11.0) K/mm3 MCV (84-94) fl Monocytes % (Manual) (0.0-7.3) % Seg Neutrophils # Man (1.8-7.7) K/mm3 Lymphocytes # (Manual) (1.2-5.4) K/mm3 Monocytes # (Manual) (0.0-0.8) K/mm3 PT (12.2-14.9) Sec. INR (0.87-1.13) APTT (24.2-36.6) Sec. ABG pH < 6.9 L* (7.350-7.450) pH Units ABG pO2 53.2 L (80.0-90.0) mm Hg ABG O2 Saturation 64.1 L (95.0-99.0) % ABG Base Excess -14.8 L (-2.0-3.0) mmol/L ABG Hemoglobin 12.4 L (14.0-18.0) gm/dl Oxyhemoglobin 62.6 L (95.0-99.0) % Sodium (137-145) mmol/L Potassium (3.6-5.0) mmol/L BUN (9-20) mg/dL Creatinine (0.8-1.3) mg/dL Lactic Acid (0.7-2.0) mmol/L Calcium (8.4-10.2) mg/dL AST (5-40) units/L ALT (7-56) units/L Alkaline Phosphatase (35-129) units/L Ammonia (25-60) umol/L Total Creatine Kinase (55-170) units/L Troponin T (0.00-0.029) ng/mL Total Protein (6.3-8.2) g/dL Albumin (3.9-5) g/dL HDL Cholesterol (40-59) mg/dL TSH (0.270-4.200) mlU/mL Salicylates (2.8-20.0) mg/dL Acetaminophen (10.0-30.0) ug/mL All other labs normal.
[2021-01-18] MEDS ORDERED: AZITHROMYCIN/NS 500 MG/250 ML 500 MG/250 ML BAG IV SCH (09:00)
[2021-01-18 09:42] LABS: Hemoglobin 12.5 gm/dl (11.8-15.2); Mean Corpuscular HGB Conc 32 % (32-34); Mean Corpuscular Volume 95 fl (84-94); Red Blood Count 4.13 M/mm3 (3.65-5.03); Red Cell Distribution Width 14.8 % (13.2-15.2)
[2021-01-18 09:43] LABS: Platelet Count 213 K/mm3 (140-440)
[2021-01-18 09:50] LABS: BUN/Creatinine Ratio 9; Blood Urea Nitrogen 26 mg/dL (9-20); Calcium 8.8 mg/dL (8.4-10.2); Hemolysis Index 53
[2021-01-18] MEDS ORDERED: FAMOTIDINE 20 MG/2 ML INJ IV SCH (10:00)
--- NOTE | 2021-01-18 10:50 | Event Note ---
Date: 01/18/21 Contacted about Vas-Cath placement in this patient status post cardiorespiratory arrest. When evaluating patient's chart, noted patient family is withdrawing care. No need to place Vas-Cath if family wishes to withdraw care. Contact vascular if we can provide further assistance.
[2021-01-18 10:52] LABS: Myelocytes # (Manual) 0.5 K/mm3; Total Cells Counted 100
[2021-01-18 10:53] LABS: Platelet Estimate Consistent w Auto; RBC Morphology Normal
[2021-01-18 11:23] VITALS: BP 61/38
--- NOTE | 2021-01-18 11:34 | Event Note ---
Date: 01/18/21 Patient reported to have presented with a cardiopulmonary arrest following substance overdose in an apparent suicide attempt. At the current time we are informed that patient is on comfort measures only, therefore no further cardiac intervention is indicated. Requested cardiac consultation will be canceled, please do not hesitate to call us if any further assistance is needed.
[2021-01-18] MEDS ORDERED: DOPamine/D5W 800 MG/250 ML 800 MG/250 ML BAG IV SCH (12:00)
--- NOTE | 2021-01-18 12:09 | Progress Note ---
Subjective Date of service: 01/18/21 Interval history: ED physician called to bedside at 11:40 AM for possible PEA secondary to withdrawal of Levophed at request of family. Patient currently in sinus rhythm on teletypesetter monitor with bradycardia. Patient without palpable femoral or jugular pulses. Bedside ultrasound demonstrates no spontaneous cardiac activity. Recycling of blood pressure shows no blood pressure. Patient's pupils fixed and dilated. Patient pronounced at 11:48 AM. Mother at bedside. Objective - Constitutional Vitals: Vital Signs - 12hr 01/18/21 01/18/21 01/18/21 04:50 05:00 05:45 Temperature 92.6 F L 92.6 F L Pulse Rate 53 L 32 L Respiratory 8 L Rate Blood Pressure 58/40 58/40 Blood Pressure [Right] O2 Sat by Pulse 89 85 Oximetry 01/18/21 01/18/21 01/18/21 07:31 07:37 07:47 Temperature 89.9 F L 89.9 F L Pulse Rate 48 L 48 L Respiratory 16 16 Rate Blood Pressure Blood Pressure 62/33 56/26 [Right] O2 Sat by Pulse 10 L 100 Oximetry 01/18/21 01/18/21 01/18/21 08:02 08:07 08:30 Temperature 88.9 F L Pulse Rate 50 L 48 L 50 L Respiratory 16 16 16 Rate Blood Pressure Blood Pressure 80/29 80/29 82/31 [Right] O2 Sat by Pulse 100 100 100 Oximetry 01/18/21 01/18/21 01/18/21 08:46 09:00 09:28 Temperature Pulse Rate 60 51 L Respiratory 16 16 Rate Blood Pressure 89/22 Blood Pressure 94/55 [Right] O2 Sat by Pulse 100 100 98 Oximetry 01/18/21 01/18/21 01/18/21 09:30 10:00 10:28 Temperature 88.8 F L Pulse Rate 58 L 60 60 Respiratory 16 16 16 Rate Blood Pressure Blood Pressure 95/38 91/29 81/28 [Right] O2 Sat by Pulse 100 100 100 Oximetry 01/18/21 01/18/21 11:01 11:22 Temperature Pulse Rate 73 73 Respiratory 16 16 Rate Blood Pressure Blood Pressure 71/26 61/38 [Right] O2 Sat by Pulse 76 L 72 L Oximetry - Labs CBC & Chem 7: 01/18/21 08:14 01/18/21 08:13 Labs: Abnormal lab results 01/18/21 01/18/21 01/18/21 Range/Units 05:31 05:31 05:31 WBC 19.2 H (4.5-11.0) K/mm3 MCV 95 H (84-94) fl Monocytes % (Manual) 9.0 H (0.0-7.3) % Seg Neutrophils # Man 9.6 H (1.8-7.7) K/mm3 Lymphocytes # (Manual) 6.0 H (1.2-5.4) K/mm3 Monocytes # (Manual) 1.7 H (0.0-0.8) K/mm3 PT 23.8 H (12.2-14.9) Sec. INR 2.13 H (0.87-1.13) APTT 104.7 H* (24.2-36.6) Sec. ABG pH (7.350-7.450) pH Units ABG pO2 (80.0-90.0) mm Hg ABG O2 Saturation (95.0-99.0) % ABG Base Excess (-2.0-3.0) mmol/L ABG Hemoglobin (14.0-18.0) gm/dl Oxyhemoglobin (95.0-99.0) % Sodium 149 H (137-145) mmol/L Potassium 6.6 H* (3.6-5.0) mmol/L Carbon Dioxide (22-30) mmol/L BUN 25 H (9-20) mg/dL Creatinine 3.1 H (0.8-1.3) mg/dL Glucose (75-100) mg/dL Lactic Acid (0.7-2.0) mmol/L Calcium > 13.0 H* (8.4-10.2) mg/dL AST 3671 H (5-40) units/L ALT 5505 H (7-56) units/L Alkaline Phosphatase 142 H (35-129) units/L Ammonia (25-60) umol/L Total Creatine Kinase 439 H (55-170) units/L Troponin T 0.183 H* (0.00-0.029) ng/mL Total Protein 5.7 L (6.3-8.2) g/dL Albumin 3.8 L (3.9-5) g/dL HDL Cholesterol 30 L (40-59) mg/dL TSH (0.270-4.200) mlU/mL Salicylates (2.8-20.0) mg/dL Acetaminophen (10.0-30.0) ug/mL 01/18/21 01/18/21 01/18/21 Range/Units 05:31 05:31 05:31 WBC (4.5-11.0) K/mm3 MCV (84-94) fl Monocytes % (Manual) (0.0-7.3) % Seg Neutrophils # Man (1.8-7.7) K/mm3 Lymphocytes # (Manual) (1.2-5.4) K/mm3 Monocytes # (Manual) (0.0-0.8) K/mm3 PT (12.2-14.9) Sec. INR (0.87-1.13) APTT (24.2-36.6) Sec. ABG pH (7.350-7.450) pH Units ABG pO2 (80.0-90.0) mm Hg ABG O2 Saturation (95.0-99.0) % ABG Base Excess (-2.0-3.0) mmol/L ABG Hemoglobin (14.0-18.0) gm/dl Oxyhemoglobin (95.0-99.0) % Sodium (137-145) mmol/L Potassium (3.6-5.0) mmol/L Carbon Dioxide (22-30) mmol/L BUN (9-20) mg/dL Creatinine (0.8-1.3) mg/dL Glucose (75-100) mg/dL Lactic Acid 19.90 H* (0.7-2.0) mmol/L Calcium (8.4-10.2) mg/dL AST (5-40) units/L ALT (7-56) units/L Alkaline Phosphatase (35-129) units/L Ammonia 456.0 H (25-60) umol/L Total Creatine Kinase (55-170) units/L Troponin T (0.00-0.029) ng/mL Total Protein (6.3-8.2) g/dL Albumin (3.9-5) g/dL HDL Cholesterol (40-59) mg/dL TSH 11.330 H (0.270-4.200) mlU/mL Salicylates (2.8-20.0) mg/dL Acetaminophen (10.0-30.0) ug/mL 01/18/21 01/18/21 01/18/21 Range/Units 05:31 05:31 06:50 WBC (4.5-11.0) K/mm3 MCV (84-94) fl Monocytes % (Manual) (0.0-7.3) % Seg Neutrophils # Man (1.8-7.7) K/mm3 Lymphocytes # (Manual) (1.2-5.4) K/mm3 Monocytes # (Manual) (0.0-0.8) K/mm3 PT (12.2-14.9) Sec. INR (0.87-1.13) APTT (24.2-36.6) Sec. ABG pH (7.350-7.450) pH Units ABG pO2 (80.0-90.0) mm Hg ABG O2 Saturation (95.0-99.0) % ABG Base Excess (-2.0-3.0) mmol/L ABG Hemoglobin (14.0-18.0) gm/dl Oxyhemoglobin (95.0-99.0) % Sodium (137-145) mmol/L Potassium (3.6-5.0) mmol/L Carbon Dioxide (22-30) mmol/L BUN (9-20) mg/dL Creatinine (0.8-1.3) mg/dL Glucose (75-100) mg/dL Lactic Acid 14.30 H* (0.7-2.0) mmol/L Calcium (8.4-10.2) mg/dL AST (5-40) units/L ALT (7-56) units/L Alkaline Phosphatase (35-129) units/L Ammonia (25-60) umol/L Total Creatine Kinase (55-170) units/L Troponin T (0.00-0.029) ng/mL Total Protein (6.3-8.2) g/dL Albumin (3.9-5) g/dL HDL Cholesterol (40-59) mg/dL TSH (0.270-4.200) mlU/mL Salicylates 0.7 L (2.8-20.0) mg/dL Acetaminophen 5.0 L (10.0-30.0) ug/mL 01/18/21 01/18/21 01/18/21 Range/Units 08:13 08:13 08:14 WBC 17.4 H (4.5-11.0) K/mm3 MCV 95 H (84-94) fl Monocytes % (Manual) (0.0-7.3) % Seg Neutrophils # Man 9.0 H (1.8-7.7) K/mm3 Lymphocytes # (Manual) (1.2-5.4) K/mm3 Monocytes # (Manual) (0.0-0.8) K/mm3 PT (12.2-14.9) Sec. INR (0.87-1.13) APTT (24.2-36.6) Sec. ABG pH (7.350-7.450) pH Units ABG pO2 (80.0-90.0) mm Hg ABG O2 Saturation (95.0-99.0) % ABG Base Excess (-2.0-3.0) mmol/L ABG Hemoglobin (14.0-18.0) gm/dl Oxyhemoglobin (95.0-99.0) % Sodium (137-145) mmol/L Potassium (3.6-5.0) mmol/L Carbon Dioxide 20 L (22-30) mmol/L BUN 26 H (9-20) mg/dL Creatinine 3.0 H (0.8-1.3) mg/dL Glucose 33 L* (75-100) mg/dL Lactic Acid (0.7-2.0) mmol/L Calcium (8.4-10.2) mg/dL AST (5-40) units/L ALT (7-56) units/L Alkaline Phosphatase (35-129) units/L Ammonia (25-60) umol/L Total Creatine Kinase (55-170) units/L Troponin T (0.00-0.029) ng/mL Total Protein (6.3-8.2) g/dL Albumin (3.9-5) g/dL HDL Cholesterol (40-59) mg/dL TSH (0.270-4.200) mlU/mL Salicylates (2.8-20.0) mg/dL Acetaminophen 5.0 L (10.0-30.0) ug/mL 01/18/21 Range/Units Unknown WBC (4.5-11.0) K/mm3 MCV (84-94) fl Monocytes % (Manual) (0.0-7.3) % Seg Neutrophils # Man (1.8-7.7) K/mm3 Lymphocytes # (Manual) (1.2-5.4) K/mm3 Monocytes # (Manual) (0.0-0.8) K/mm3 PT (12.2-14.9) Sec. INR (0.87-1.13) APTT (24.2-36.6) Sec. ABG pH < 6.9 L* (7.350-7.450) pH Units ABG pO2 53.2 L (80.0-90.0) mm Hg ABG O2 Saturation 64.1 L (95.0-99.0) % ABG Base Excess -14.8 L (-2.0-3.0) mmol/L ABG Hemoglobin 12.4 L (14.0-18.0) gm/dl Oxyhemoglobin 62.6 L (95.0-99.0) % Sodium (137-145) mmol/L Potassium (3.6-5.0) mmol/L Carbon Dioxide (22-30) mmol/L BUN (9-20) mg/dL Creatinine (0.8-1.3) mg/dL Glucose (75-100) mg/dL Lactic Acid (0.7-2.0) mmol/L Calcium (8.4-10.2) mg/dL AST (5-40) units/L ALT (7-56) units/L Alkaline Phosphatase (35-129) units/L Ammonia (25-60) umol/L Total Creatine Kinase (55-170) units/L Troponin T (0.00-0.029) ng/mL Total Protein (6.3-8.2) g/dL Albumin (3.9-5) g/dL HDL Cholesterol (40-59) mg/dL TSH (0.270-4.200) mlU/mL Salicylates (2.8-20.0) mg/dL Acetaminophen (10.0-30.0) ug/mL Medications & Allergies - Medications Allergies/Adverse Reactions: Allergies Unable to Assess Allergy (Unverified 01/18/21 05:47) UTO Active Medications: Generic Name Dose Route Start Last Admin Trade Name Freq PRN Reason Stop Dose Admin Acetaminophen 650 mg 01/18/21 07:47 Acetaminophen 650 Mg Rect Supp PA Q6H PRN Pain MILD(1-3)/Fever >100.5/REYES Albuterol 2.5 mg 01/18/21 07:47 Albuterol 2.5 Mg/3 Ml Nebu IH Q3HRT PRN Shortness Of Breath Albuterol/Ipratropium 1 ampul 01/18/21 08:15 Ipratropium/Albuterol Sulfate 3 Ml Ampul.Neb IH Q6HRT [facility] Dextrose 50 ml 01/18/21 07:47 Dextrose 50% In Water (25gm) 50 Ml Syringe IV Q30MIN PRN Hypoglycemia Protocol Famotidine 20 mg 01/18/21 10:00 Famotidine 20 Mg/2 Ml Inj IV DAILY [facility] Hydrophilic Ointment 1 applic 01/18/21 05:20 01/18/21 05:34 Lip Therapy Vaseline TP 1 applic Q2HR PRN Administration Dry Lips Sodium Chloride 1,000 mls @ 125 mls/hr 01/18/21 08:00 Nacl 0.9% 1000 Ml IV DIRECT [facility] Azithromycin 500 mg in 250 mls @ 250 mls/hr 01/18/21 09:00 Zithromax/Ns IV Q24H [facility] Ceftriaxone Sodium 2 gm in 100 mls @ 200 mls/hr 01/19/21 09:00 Rocephin/Ns 2 Gm/100 Ml IV Q24H [facility] Protocol Dopamine HCl/Dextrose 800 mg in 250 mls @ 2.722 mls/hr 01/18/21 12:00 Intropin Drip 800 Mg/D5w 250 Ml IV TITR [facility] Protocol 2 MCG/KG/MIN Multi-Ingred Cream/Lotion/Oil/Oint 1 applic 01/18/21 05:20 01/18/21 05:33 Mineral Oil/Petrolatum, White Ophth Oint 3.5 Gm OU 1 applic Q4HR PRN Administration Dry Eye(s) Ondansetron HCl 4 mg 01/18/21 07:47 Ondansetron 4 Mg/2 Ml Inj IV Q8H PRN Nausea And Vomiting Sodium Chloride 10 ml 01/18/21 10:00 Sodium Chloride 0.9% 10 Ml Flush Syringe IV BID MYRON Sodium Chloride 10 ml 01/18/21 07:47 Sodium Chloride 0.9% 10 Ml Flush Syringe IV PRN PRN LINE FLUSH HEART Score - HEART Score Troponin: Troponin T 0.183 ng/mL (0.00-0.029) H* 01/18/21 05:31
--- NOTE | 2021-01-18 14:12 | Death Summary ---
Summary - Providers Date of service: 01/18/21 Consults: 01/18/21 Consult to Cardiac Rehabilitation [CONS] Routine Reason For Exam: Phase I 01/18/21 05:20 Consult to Physician [CONS] Stat Comment: Consulting Provider: GABE CADENA Physician Instructions: Reason For Exam: arrest 01/18/21 05:21 Consult to Dietitian/Nutrition [CONS] Routine Physician Instructions: Reason For Exam: Reason for Consult: Evaluate nutritional intake 01/18/21 07:29 Consult to Physician [CONS] Routine Comment: Consulting Provider: OLLIE ELLIS Physician Instructions: Reason For Exam: INDIRA, hyperkalemia, lactic acidosis 01/18/21 07:47 Consult to Physician [CONS] Routine Comment: Consulting Provider: ROBBY THORPE Physician Instructions: Reason For Exam: s/p arrest 01/18/21 08:01 Consult to Physician [CONS] Urgent Comment: Consulting Provider: LANNY SHEPARD Physician Instructions: Reason For Exam: vascath placement 01/18/21 08:04 Consult to Physician [CONS] Routine Comment: Consulting Provider: ARTUR COSME Physician Instructions: Reason For Exam: Drug abuse, OD Attending: ZORAIDA TORRES - summary Date of admission: 01/18/21 07:27 Date of : 01/18/21 Reason for admission: Drug overdose Procedures/treatments rendered: 30-year-old male hepatitis C and prior suicide attempts who presented to the ED on 01/18 s/p cardiac arrest at home with last known well at 0300 found in PEA and intubated in the field by EMS with a reportedly obtained a shockable rhythm on route which was shocked and was given amiodarone. Upon arrival to the ED department patient's pupils are fixed and dilated and react to light with a GCS of 3T and receiving CPR with vomitus around oropharynx and PEA and regained ROSC approximately 10 to 15 minutes post arrival to the ED and his low ETT was changed to 7.50 ETT, patient was hypotensive at 58/40 and a central line was placed and he was hypothermic at 92.6 F. Initial chest x-ray showed asymmetric opacity right chest (aspiration/pneumonia favored over asymmetric edema), CT head shows mild loss of to white differentiation which may represent early isch emia with fluid in the maxillary sinus and left ethmoid air cells and CTA chest was negative for pulmonary embolism, negative for thoracic aortic dissection or thoracic aortic aneurysm, bilateral pneumonia superimposed on mild edema and suspected nondisplaced fracture of the anterior sternum. Lab work revealed leukocytosis, hypoxemia, metabolic acidosis, hyperchloremia, hypernatremia, acute kidney injury, lactic acidosis, hyperkalemia, transaminitis, hyperammonemia, elevated cardiac enzymes and elevated TSH. His UDS was positive for amphetamines, benzodiazepines and THC. Cardiology, neurology, psychiatric, nephrology and [facility] were consulted. Hospital course Patient became hypotensive on Levophed and so he was started on dopamine. I had extensive discussion with patient's mother, Genevieve and her sisters at bedside. Patient is the only child of his mother. As per Genevieve, patient would not want to remain intubated for the rest of his life. Patient also would not want to be resuscitated should he have another cardiac arrest. She would like patient to be made comfortable at this time but still waiting for the rest of the family to arrive. DNR form signed by patients mother. Patient's mother requested for withdrawal of Levophed and other pressors as patient would not want aggressive intervention at this time. After some time, ER physician was called to bedside for pulseless electrical activity. Patient found to have no spontaneous cardiac activity, pupils fixed and dilated. Patient pronounced at 11:48 AM with mother at bedside. - Final diagnosis (1) Drug overdose Note: Final diagnosis: (2) Cardiac arrest Note: Final diagnosis:
[2021-01-19] MEDS ORDERED: cefTRIAXone/NS 2 GM/100 ML 2 GM/100 ML BAG IV SCH (09:00)
== END 2021-01-18 11:48 | DRG 871 ==
LOC: ED 04:37 → CC1 07:27
PROVIDERS: ADMIT Internal Medicine; ATTEND Internal Medicine
PROC: 4A033R1 Measurement of Arterial Saturation, Peripheral, Percutaneous Approach (ICD-10-PCS; principal; 2021-01-18)
PROC: 5A1935Z Respiratory Ventilation, Less than 24 Consecutive Hours (ICD-10-PCS; 2021-01-18)
PROC: 0BH17EZ Insertion of Endotracheal Airway into Trachea, Via Natural or Artificial Opening (ICD-10-PCS; 2021-01-18)
PROC: 5A12012 Performance of Cardiac Output, Single, Manual (ICD-10-PCS; 2021-01-18)
PROC: 05HY33Z Insertion of Infusion Device into Upper Vein, Percutaneous Approach (ICD-10-PCS; 2021-01-18)
PROC: B543ZZA Ultrasonography of Right Jugular Veins, Guidance (ICD-10-PCS; 2021-01-18)
DX: A41.9 Sepsis, unspecified organism (principal); J96.01 Acute respiratory failure with hypoxia; N17.0 Acute kidney failure with tubular necrosis; K72.00 Acute and subacute hepatic failure without coma; J69.0 Pneumonitis due to inhalation of food and vomit; E72.20 Disorder of urea cycle metabolism, unspecified; E87.0 Hyperosmolality and hypernatremia; K92.2 Gastrointestinal hemorrhage, unspecified; I46.9 Cardiac arrest, cause unspecified; E87.5 Hyperkalemia; B19.20 Unspecified viral hepatitis C without hepatic coma; R74.01 Elevation of levels of liver transaminase levels; F19.10 Other psychoactive substance abuse, uncomplicated; Z66 Do not resuscitate; T68.XXXA Hypothermia, initial encounter; I95.9 Hypotension, unspecified; T43.621A Poisoning by amphetamines, accidental (unintentional), initial encounter; Y92.89 Other specified places as the place of occurrence of the external cause
CPT/HCPCS: 31500; 70450; 71045; 71275; 72125; 80048; 80053; 80061; 80307; 80320; 81001; 82140; 82550; 82803; 84439; 84443; 84484; 85007; 85025; 85610; 85730; 86850; 86900; 86901; 87040; 93005; 94002; 94003; 96365; 96375; G0378; G0480; J0692; J3010; J7030; J7120; Q9967